=== PATIENT | female | born 1955 | race Caucasian/White ===

== ENCOUNTER → 2016-04-25 | Outpatient (CLI) | payer BC ==
[~2016-04-25] MED LIST: BUSP1TAB46 PO; CARV6.252 PO; CHOL100027 PO; INSU1.2I SC; LEVO125T5 PO; LISI-461 PO; LPT10 PO; MELA1TAB5 PO; NVLGI/PEN SC; TRAZ1TAB52 PO; VENL75CA73 PO; VERA240T20 PO; VNTHFA/IN INH; [UNRECOGNIZED DRUG - CODE] PO
[2016-04-25 17:57] LABS: CHOLESTEROL/HDL RATIO 2.1; THYROID STIMULATING HORMONE 0.948 uIu/ml (0.300-4.500)
[2016-04-26 06:57] LABS: ESTIMATED AVERAGE GLUCOSE 143 mg/dl; HA1C FLAG Normal (Normal)
== END | disposition home or self-care (01) ==
LOC: C.LAB1850 16:36
PROVIDERS: ATTEND Nurse Practitioner Adult Health
DX: E55.9 Vitamin D deficiency, unspecified (principal); Z11.59 Encounter for screening for other viral diseases

== ENCOUNTER → 2016-08-24 | Outpatient (CLI) | payer BC ==
[2016-08-24 15:41] LABS: BASO % 0.3 %; BASO ABS # 0.03 K/uL (0-0.2); COMPLETE YES; EOS % 3.5 %; IG% 0.3 %; LYMPH % 29.5 %; LYMPH ABS # 2.78 K/uL (1.2-3.4); MEAN CELL VOLUME 89.9 fL (80-100); MEAN CORPUSCULAR HEMOGLOBIN 28.5 pg (25-34); MEAN CORPUSCULAR HGB CONC 31.8 g/dl (32-36); MEAN PLATELET VOLUME 10.6 fL (7.4-10.4); MONO % 5.9 %; NEUT % 60.5 %; PLATELET COUNT 211 K/uL (130-400); RED BLOOD COUNT 4.45 M/uL (4.2-5.4); WHITE BLOOD COUNT 9.43 K/uL (4.8-10.8)
--- NOTE | 2016-08-24 15:42 | DIAGNOSTIC IMAGING REPORT ---
CHEST 2 VIEWS ROUTINE CLINICAL HISTORY: R06.02 Shortness of breath on [id number] dyspnea COMPARISON STUDY: 08/26/2015 FINDINGS: The bones soft tissues and hemidiaphragms are normal. The cardiomediastinal silhouette is normal. The lungs are clear. The pulmonary vasculature is normal. IMPRESSION: Negative chest. Electronically signed by: William Solo M.D. 08/24/2016 3:41 PM Dictated Date/Time: 08/24/2016 3:40 PM
[2016-08-24 16:18] LABS: ALT/SGPT 28 U/L (12-78); AST/SGOT 19 U/L (15-37); BLOOD UREA NITROGEN 11 mg/dl (7-18); BUN/CREATININE RATIO 19.5 (10-20); CARBON DIOXIDE 30 mmol/L (21-32); CHLORIDE 105 mmol/L (98-107); CREATININE 0.58 mg/dl (0.60-1.20); GLUCOSE 91 mg/dl (70-99); POTASSIUM 4.2 mmol/L (3.5-5.1); SODIUM 140 mmol/L (136-145)
[2016-08-24 16:28] LABS: ALB/GLOB RATIO 1.1 (0.9-2); ALKALINE PHOSPHATASE 103 U/L (45-117)
[2016-08-25 07:32] LABS: ESTIMATED AVERAGE GLUCOSE 163 mg/dl; HA1C FLAG Normal (Normal)
== END | disposition home or self-care (01) ==
LOC: C.RAD1850 14:52
PROVIDERS: ATTEND Physician Assistant
DX: R06.02 Shortness of breath (principal); E03.9 Hypothyroidism, unspecified

== ENCOUNTER → 2016-09-18 | Outpatient (CLI) | payer BC ==
--- NOTE | 2016-09-19 16:30 | MAMMOGRAPHY REPORT ---
BILATERAL DIGITAL SCREENING MAMMOGRAM TOMOSYNTHESIS WITH CAD: 09/18/2016 CLINICAL HISTORY: Routine screening. Patient has no complaints. Patient failed to follow-up for a short interval diagnostic mammogram and ultrasound after a diagnostic workup dated 09/16/2015. TECHNIQUE: Breast tomosynthesis in addition to standard 2D mammography was performed. Current study was also evaluated with a Computer Aided Detection (CAD) system. COMPARISON: Comparison is made to exams dated: 09/16/2015 ultrasound, 09/16/2015 mammogram, and 016 mammogram - [facility]. BREAST COMPOSITION: There are scattered areas of fibroglandular density in both breasts. FINDINGS: The previously described oval circumscribed mass with associated calcification in the lowe r inner middle one third of the right breast has not significantly changed in size since the mammogr am 1 year ago dated 08/26/2015. The associated calcifications appear more coarsened, suggesting estee ignity. This could represent a degenerating fibroadenoma. At this point with 1 year stability, it seems reasonable to reassess in 1 year for next annual screening exam, although long-term stability with more remote mammograms is not demonstrated. There are diffuse bilateral rodlike secretory calcifications and benign rim calcifications. Minimal vascular calcification. No other suspicious mass, architectural distortion or cluster of suspiciou s microcalcifications is seen. IMPRESSION: ACR BI-RADS CATEGORY 1: NEGATIVE The patient failed a follow-up for a recommended short interval follow-up diagnostic mammogram after the 09/16/2015 exam. However, the mammographic finding described in the right breast at that time has not significantly changed in size and associated calcifications have coarsened, suggesting benig nity. At this point with 1 year of stability, another 12 month follow-up exam seems reasonable and can reassess at time of next annual screening mammogram. Stable mammographic appearance of the left breast, without mammographic evidence of malignancy. Recommend routine mammography in one year. The patient will receive written notification of the results. Approximately 10% of breast cancers are not detected with mammography. A negative mammographic repor t should not delay biopsy if a clinically suggestive mass is present. Eboni Dang M.D. ay/:09/19/2016 16:09:54 Database Administration Project Manager: Meghan GARCIA(Bridget)(Kaylynn), [facility] letter sent: Normal 1/2 BI-RADS Code: ACR BI-RADS Category 1: Negative
== END | disposition home or self-care (01) ==
LOC: C.MAMM 16:06
PROVIDERS: ATTEND Nurse Practitioner Adult Health
DX: Z12.31 Encounter for screening mammogram for malignant neoplasm of breast (principal); R92.1 Mammographic calcification found on diagnostic imaging of breast

== ENCOUNTER → 2017-06-24 | Outpatient (CLI) | payer OTHER ==
--- NOTE | 2017-06-24 16:50 | DIAGNOSTIC IMAGING REPORT ---
CHEST 2 VIEWS ROUTINE CLINICAL HISTORY: R05 [id number] dyspnea COMPARISON STUDY: 08/24/2016 FINDINGS: The bones soft tissues and hemidiaphragms are normal. The cardiomediastinal silhouette is normal. The lungs are clear. The pulmonary vasculature is normal. IMPRESSION: Negative chest. The above report was generated using voice recognition software. It may contain grammatical, syntax or spelling errors. Electronically signed by: William Solo M.D. 06/24/2017 4:49 PM Dictated Date/Time: 06/24/2017 4:48 PM
== END | disposition home or self-care (01) ==
LOC: C.RAD1850 16:34
PROVIDERS: ATTEND Nurse Practitioner Family
DX: R05 Cough (principal)

== ENCOUNTER → 2017-06-24 | Outpatient (CLI) | payer OTHER | END | disposition home or self-care (01) | LOC: C.LABSPEC 10:55 | PROVIDERS: ATTEND Nurse Practitioner Family | DX: R39.9 Unspecified symptoms and signs involving the genitourinary system (principal) ==

== ENCOUNTER → 2017-07-15 | Outpatient (CLI) | payer OTHER ==
--- NOTE | 2017-07-15 14:14 | DIAGNOSTIC IMAGING REPORT ---
SINUS CT WITHOUT CONTRAST CLINICAL HISTORY: Headache. Seasonal allergies. COMPARISON STUDY: None. Technique: Helical axial images of the sinuses were obtained without IV contrast. Coronal reformats were viewed. A dose lowering technique was utilized adhering to the principles of ALARA. CT DOSE: 265.18 mGycm FINDINGS: Mastoid air cells are clear. Orbits are unremarkable. The maxillary and frontal sinuses are clear. There is minimal mucosal thickening of the ethmoid and sphenoid sinuses. Major drainage pathways are patent. There is no bony destruction. There are no air-fluid levels. There is mild right deviation of the nasal septum with spur formation. IMPRESSION: 1. Essentially clear sinuses. Minimal mucosal thickening of the sphenoid and ethmoid sinuses. No evidence for acute sinusitis. Patent major drainage pathways. 2. Mild rightward deviation of the nasal septum with spur formation. Electronically signed by: Berny Luevano M.D. 07/15/2017 2:12 PM Dictated Date/Time: 07/15/2017 2:09 PM
== END | disposition home or self-care (01) ==
LOC: C.CTS 13:56
PROVIDERS: ATTEND Nurse Practitioner Adult Health
DX: J30.2 Other seasonal allergic rhinitis (principal); G44.209 Tension-type headache, unspecified, not intractable

== ENCOUNTER → 2017-08-06 | Outpatient (CLI) | payer OTHER ==
[2017-08-06 17:36] LABS: BASO % 0.3 %; BASO ABS # 0.03 K/uL (0-0.2); EOS ABS # 0.46 K/uL (0-0.5); HEMATOCRIT 39.2 % (37-47); HEMOGLOBIN 12.7 g/dL (12.0-16.0); IG# 0.04 K/uL (0.00-0.02); LYMPH % 19.9 %; LYMPH ABS # 2.27 K/uL (1.2-3.4); MEAN CELL VOLUME 89.5 fL (80-100); MEAN CORPUSCULAR HGB CONC 32.4 g/dl (32-36); MEAN PLATELET VOLUME 11.1 fL (7.4-10.4); MONO % 5.4 %; MONO ABS # 0.62 K/uL (0.11-0.59); NEUT ABS # 7.96 K/uL (1.4-6.5); PLATELET COUNT 224 K/uL (130-400); RED CELL DISTRIBUTION WIDTH CV 15.1 % (11.5-14.5); RED CELL DISTRIBUTION WIDTH SD 49.4 fL (36.4-46.3); WHITE BLOOD COUNT 11.38 K/uL (4.8-10.8)
== END | disposition home or self-care (01) ==
LOC: C.LAB1850 16:05
PROVIDERS: ATTEND Internal Medicine Pulmonary Disease
DX: R21 Rash and other nonspecific skin eruption (principal)

== ENCOUNTER → 2017-08-15 | Outpatient (CLI) | payer OTHER ==
[2017-08-15 17:54] LABS: ALBUMIN 3.5 gm/dl (3.4-5.0); ALT/SGPT 24 U/L (12-78); AST/SGOT 21 U/L (15-37); BLOOD UREA NITROGEN 8 mg/dl (7-18); CALCIUM 8.9 mg/dl (8.5-10.1); CARBON DIOXIDE 29 mmol/L (21-32); CHOLESTEROL 107 mg/dl (0-200); CREATININE 0.81 mg/dl (0.60-1.20); GLUCOSE 91 mg/dl (70-99); POTASSIUM 3.7 mmol/L (3.5-5.1); SODIUM 141 mmol/L (136-145)
[2017-08-15 17:56] LABS: CREATININE RANDOM URINE 26.5 mg/dl
[2017-08-15 18:02] LABS: ALKALINE PHOSPHATASE 83 U/L (45-117); LDL CHOLESTEROL CALCULATED 33 mg/dl; TOTAL PROTEIN 7.3 gm/dl (6.4-8.2)
[2017-08-16 07:02] LABS: HEMOGLOBIN A1C 6.4 % (4.5-5.6)
== END | disposition home or self-care (01) ==
LOC: C.LAB1850 16:29
PROVIDERS: ATTEND Physician Assistant
DX: E11.9 Type 2 diabetes mellitus without complications (principal)

== ENCOUNTER → 2017-08-16 | Outpatient (CLI) | payer OTHER ==
--- NOTE | 2017-08-16 13:12 | DIAGNOSTIC IMAGING REPORT ---
(CHEST) THORAX WITHOUT CT DOSE: 578.11 mGy.cm CLINICAL HISTORY: 62 years-old Female with R05 Cough. Acute cough TECHNIQUE: Multiaxial CT images of the chest were performed without contrast. A dose lowering technique was utilized adhering to the principles of ALARA. COMPARISON: Chest radiograph 06/24/2017, chest radiograph 08/26/2015 FINDINGS: No dominant thyroid nodule identified. No pathologically enlarged lymph nodes by CT size criteria. Mildly prominent mediastinal and hilar lymph nodes are seen measuring up to 9 mm within the right hilum, likely reactive. Heart is normal in size without pericardial effusion. Coronary arterial calcifications. No aortic aneurysm identified. No pleural effusion, lobar airspace consolidation or pneumothorax. 4 mm pleural-based nodule of the apical segment right upper lobe on image 55 series 4 suggests area of parenchymal scarring. Linear subsegmental bibasilar opacities suggest scarring/atelectasis. Additionally, there is mild dependent subsegmental atelectasis. Punctate calcified granuloma of the lateral basal segment left lower lobe on image 234. Central airways are patent. Prior cholecystectomy. 11 mm low attenuating circumscribed lesion of the subserosal left hepatic lobe on image 49 series 2 suggests hepatic cyst. No acute process of the imaged upper abdomen. Soft tissues are unremarkable. Biopsy clip of the medial left breast. Calcifications of the bilateral breast parenchyma are incidentally noted. Degenerative changes are seen within the shoulders and spine with suggested rotator cuff calcific tendinosis about the left shoulder. Technically age-indeterminate however chronic appearing compression deformity involves the T12 vertebral body, unchanged from comparison chest radiograph. IMPRESSION: 1. No acute intrathoracic abnormality identified. 2. No lobar airspace consolidation or pathologic adenopathy. 3. Prior cholecystectomy. 4. Remote compression deformity of the T12 vertebral body. 5. Coronary arterial disease. Electronically signed by: Grant Stewart M.D. 08/16/2017 1:11 PM Dictated Date/Time: 08/16/2017 1:04 PM
== END | disposition home or self-care (01) ==
LOC: C.CTS 12:32
PROVIDERS: ATTEND Internal Medicine Pulmonary Disease
DX: R05 Cough (principal); M43.8X4 Other specified deforming dorsopathies, thoracic region; I25.10 Atherosclerotic heart disease of native coronary artery without angina pectoris; Z90.49 Acquired absence of other specified parts of digestive tract

== ENCOUNTER → 2017-09-09 | Outpatient (CLI) | payer OTHER ==
[2017-09-09 17:05] LABS: ALBUMIN 3.4 gm/dl (3.4-5.0); ALKALINE PHOSPHATASE 80 U/L (45-117); ALT/SGPT 20 U/L (12-78); AST/SGOT 18 U/L (15-37); BLOOD UREA NITROGEN 10 mg/dl (7-18); CALCIUM 8.9 mg/dl (8.5-10.1); CARBON DIOXIDE 29 mmol/L (21-32); GLUCOSE 124 mg/dl (70-99); POTASSIUM 3.7 mmol/L (3.5-5.1); SODIUM 140 mmol/L (136-145); TOTAL PROTEIN 6.9 gm/dl (6.4-8.2)
== END | disposition home or self-care (01) ==
LOC: C.LAB1850 15:45
PROVIDERS: ATTEND Internal Medicine Pulmonary Disease
DX: R06.02 Shortness of breath (principal); R05 Cough

== ENCOUNTER 2017-11-17 14:19 | Emergency (ER) | payer OTHER ==
[~2017-11-17] VITALS: Ht 170.2 cm; Wt 95.1 kg
[~2017-11-17 14:19] MED LIST changes: +ABL/5 PO; +EFF/375 PO; +INSPMPRGR SC; -LEVO125T5 PO; +LEVO137T3 PO; -LISI-461 PO; +LOSA50TA6 PO; +METH500T37 PO; +NAPR1TAB9 PO; -NVLGI/PEN SC
[2017-11-17 14:23] VITALS: TEMP 36.8; Ht 170.2 cm; Wt 95.1 kg
[2017-11-17 14:54] LABS: BASO % 0.4 %; BASO ABS # 0.04 K/uL (0-0.2); EOS % 3.3 %; EOS ABS # 0.35 K/uL (0-0.5); HEMATOCRIT 41.1 % (37-47); HEMOGLOBIN 13.1 g/dL (12.0-16.0); IG# 0.03 K/uL (0.00-0.02); LYMPH % 23.2 %; LYMPH ABS # 2.43 K/uL (1.2-3.4); MEAN CELL VOLUME 88.4 fL (80-100); MEAN CORPUSCULAR HEMOGLOBIN 28.2 pg (25-34); MEAN CORPUSCULAR HGB CONC 31.9 g/dl (32-36); MEAN PLATELET VOLUME 10.6 fL (7.4-10.4); MONO % 5.4 %; MONO ABS # 0.57 K/uL (0.11-0.59); NEUT % 67.4 %; NEUT ABS # 7.06 K/uL (1.4-6.5); PLATELET COUNT 199 K/uL (130-400); RED CELL DISTRIBUTION WIDTH CV 14.5 % (11.5-14.5); RED CELL DISTRIBUTION WIDTH SD 47.2 fL (36.4-46.3); WHITE BLOOD COUNT 10.48 K/uL (4.8-10.8)
[2017-11-17 15:14] LABS: ALBUMIN 3.7 gm/dl (3.4-5.0); CALCIUM 8.9 mg/dl (8.5-10.1); CREATININE 0.65 mg/dl (0.60-1.20); POTASSIUM 4.1 mmol/L (3.5-5.1); TOTAL PROTEIN 7.2 gm/dl (6.4-8.2)
[2017-11-17] MEDS ORDERED: LEVO150T9 PO (15:16)
[2017-11-17] MEDS ORDERED: CETI10TA10 PO (15:16)
[2017-11-17] MEDS ORDERED: DEXT1TAB PO (15:16)
[2017-11-17] MEDS ORDERED: CEPH500C PO (15:35)
[2017-11-17] MEDS ORDERED: CEPHALEXIN 500MG HOME PACK 1 EA BTL PO ONE (15:45)
[2017-11-17] MEDS ORDERED: CEPHALEXIN MONOHYDRATE 250 MG CAP PO ONE (15:45)
--- NOTE | 2017-11-17 15:53 | EMERGENCY ROOM VISIT NOTE ---
History Report prepared by Martha: Gisselle Snow Under the Supervision of: Dr. Brock Mesa M.D. First contact with patient: 14:25 Chief Complaint: URINARY SYMPTOMS Stated Complaint: PAIN WHEN URINATING History of Present Illness The patient is a 62 year old female who presents to the Emergency Room with complaints of persistent urinary symptoms starting 3 days ago. She woke up morning with some blood in her urine, burning with urination, and incontinence. She called her doctor and was told to come to the ED. Since then she has had one more episode of hematuria. The incontinence has improved. She has continued to have burning with urination. She is having lower abdominal discomfort. She has had some bilateral back discomfort which worsens with movement. She has had these symptoms before with her UTIs. She has several UTIs a year. Her last UTI was several months ago. She has had some new leg swelling. She has not had any fevers or chest pain. She denies any changes in her bowel movements. She has been eating and drinking well. She denies any recent falls. She is not on any blood thinners. She takes Naprosyn 2 times a day for joint pain. She has had some cough and SOB for which she has been following with pulmonology. She had a bronchoscopy earlier this month. Her SOB has not worsened. She was on Augmentin 2 weeks ago for her cough. She has a history of insulin dependent diabetes. Her sugars have been under control. Source of History: patient Onset: 3 days ago Position: other (urine) Quality: burning Timing: other (persistent) Associated Symptoms: + abdominal pain, + back pain, No fevers, No chest pain Review of Systems See HPI for pertinent positives and negatives. A total of ten systems were reviewed and were otherwise negative. Past Medical & Surgical Medical Problems: (1) Arthritis (2) Crohn's disease (3) Diabetes (4) Hypertension (5) Hypothyroidism Family History No pertinent family history stated Social History Smoking Status: Never Smoker Marital Status: Housing Status: lives with significant other Occupation Status: retired Current/Historical Medications Scheduled Aripiprazole (Abilify), 1 TAB PO HS Atorvastatin (Lipitor), 1 TAB PO HS Buspirone Hcl (Buspirone Hcl), 1 TAB PO BID Carvedilol (Coreg), 6.25 MG PO BIDM Cephalexin Monohydrate (Keflex), 500 MG PO QID Cetirizine Hcl (Zyrtec), 10 MG PO DAILY Cholecalciferol (Vitamin D 1000 Unit), 1,000 INTER.UNIT PO BID Dextromethorphan-Guaifenesin (Guaifenesin/Dextromethorp 20-400 mg), 1 TAB PO HS Insulin Glargine (Toujeo Solostar), 55 UNITS SC HS Insulin Human Regular (Humulin R), 20 UNITS SC TIDM Levothyroxine Sodium (Levothyroxine Sodium), 287 MCG PO DAILY Levothyroxine Sodium (Levothyroxine Sodium), 287 MCG PO DAILY Losartan Potassium (Cozaar), 1 TAB PO DAILY Melatonin (Kp Melatonin), 6 MG PO HS Naproxen (Aleve), 220 MG PO AMHS Polysaccharide Iron Complex-Ir (Feosol Bifera), 1 TAB PO QAM Trazodone Hcl (Desyrel), 150 MG PO HS Venlafaxine Hcl (Venlafaxine Extended Rel), 112.5 MG PO QAM Venlafaxine Hcl (Effexor), 112.5 MG PO DAILY Verapamil Sust Rel (Calan Sr Ext Rel), 240 MG PO QAM Scheduled PRN Albuterol Hfa (Ventolin Hfa), 2-4 PUFFS INH Q6H PRN for SOB/Wheezing Methocarbamol (Robaxin), 500 MG PO TID PRN for Muscle Spasms Allergies Coded Allergies: Sulfa Antibiotics (Verified Allergy, Severe, SUNBURN FEELING AND SKIN TURNS BRIGHT RED, 11/17/17) CI Pigment Blue 63 (Verified Allergy, Intermediate, RASH, 11/17/17) Duloxetine (Verified Allergy, Intermediate, RASH, 11/17/17) Physical Exam Vital Signs Date Time Temp Pulse Resp B/P (MAP) Pulse Ox O2 Delivery O2 Flow Rate FiO2 11/17/17 15:57 89 16 138/76 98 11/17/17 14:23 36.8 71 20 149/78 94 Room Air Physical Exam GENERAL: Awake, alert, well-appearing, in no distress HENT: Normocephalic, atraumatic. Oropharynx unremarkable. EYES: Normal conjunctiva. Sclera non-icteric. NECK: Supple. No nuchal rigidity. RESPIRATORY: Clear to auscultation. No wheezes. Normal respiratory effort. CARDIAC: Normal rate. Normal rhythm. Extremities warm and well perfused. GI: Soft, non-distended. No tenderness to palpation. No rebound or guarding. No masses. RECTAL: Deferred. MUSCULOSKELETAL: Atraumatic. Chest examination reveals no tenderness. There is mild bilateral back tenderness without CVA tenderness. LOWER EXTREMITIES: Calves are equal size bilaterally and non-tender. No edema NEURO: Normal sensorium. No sensory or motor deficits noted. SKIN: Warm and dry. No rash or jaundice noted. Medical Decision & Procedures Laboratory Results 11/17/17 14:40 Red Blood Count 4.65, Mean Corpuscular Volume 88.4, Mean Corpuscular Hemoglobin 28.2, Mean Corpuscular Hemoglobin Concent 31.9, Mean Platelet Volume 10.6, Neutrophils (%) (Auto) 67.4, Lymphocytes (%) (Auto) 23.2, Monocytes (%) (Auto) 5.4, Eosinophils (%) (Auto) 3.3, Basophils (%) (Auto) 0.4, Neutrophils # (Auto) 7.06, Lymphocytes # (Auto) 2.43, Monocytes # (Auto) 0.57, Eosinophils # (Auto) 0.35, Basophils # (Auto) 0.04 11/17/17 14:40 Test 11/17/17 14:40 11/17/17 14:55 White Blood Count 10.48 K/uL (4.8-10.8) Red Blood Count 4.65 M/uL (4.2-5.4) Hemoglobin 13.1 g/dL (12.0-16.0) Hematocrit 41.1 % (37-47) Mean Corpuscular Volume 88.4 fL (80-100) Mean Corpuscular Hemoglobin 28.2 pg (25-34) Mean Corpuscular Hemoglobin Concent 31.9 g/dl (32-36) Platelet Count 199 K/uL (130-400) Mean Platelet Volume 10.6 fL (7.4-10.4) Neutrophils (%) (Auto) 67.4 % Lymphocytes (%) (Auto) 23.2 % Monocytes (%) (Auto) 5.4 % Eosinophils (%) (Auto) 3.3 % Basophils (%) (Auto) 0.4 % Neutrophils # (Auto) 7.06 K/uL (1.4-6.5) Lymphocytes # (Auto) 2.43 K/uL (1.2-3.4) Monocytes # (Auto) 0.57 K/uL (0.11-0.59) Eosinophils # (Auto) 0.35 K/uL (0-0.5) Basophils # (Auto) 0.04 K/uL (0-0.2) RDW Standard Deviation 47.2 fL (36.4-46.3) RDW Coefficient of Variation 14.5 % (11.5-14.5) Immature Granulocyte % (Auto) 0.3 % Immature Granulocyte # (Auto) 0.03 K/uL (0.00-0.02) Anion Gap 8.0 mmol/L (3-11) Est Creatinine Clear Calc Drug Dose 104.9 ml/min Estimated GFR () 109.5 Estimated GFR (Non- 94.5 BUN/Creatinine Ratio 12.9 (10-20) Calcium Level 8.9 mg/dl (8.5-10.1) Total Bilirubin 0.3 mg/dl (0.2-1) Direct Bilirubin 0.1 mg/dl (0-0.2) Aspartate Amino Transf (AST/SGOT) 24 U/L (15-37) Alanine Aminotransferase (ALT/SGPT) 25 U/L (12-78) Alkaline Phosphatase 95 U/L (45-117) Total Protein 7.2 gm/dl (6.4-8.2) Albumin 3.7 gm/dl (3.4-5.0) Lipase 73 U/L (73-393) Urine Color YELLOW Urine Appearance CLOUDY (CLEAR) Urine pH 6.5 (4.5-7.5) Urine Specific [place] 1.005 (1.000-1.030) Urine Protein NEG (NEG) Urine Glucose (UA) NEG (NEG) Urine Ketones NEG (NEG) Urine Occult Blood 1+ (NEG) Urine Nitrite NEG (NEG) Urine Bilirubin NEG (NEG) Urine Urobilinogen NEG (NEG) Urine Leukocyte Esterase LARGE (NEG) Urine WBC (Auto) >30 /hpf (0-5) Urine RBC (Auto) 0-4 /hpf (0-4) Urine Hyaline Casts (Auto) 0 /lpf (0-5) Urine Epithelial Cells (Auto) 0-5 /lpf (0-5) Urine Bacteria (Auto) NEG (NEG) Laboratory results reviewed by me Medications Administered Medications (Trade) Dose Ordered Sig/Cristobal Route Start Time Stop Time Status Last Admin Dose Admin Cephalexin Monohydrate (Keflex Cap) 500 mg NOW ONCE PO 11/17/17 15:45 11/17/17 15:46 DC 11/17/17 15:45 500 MG Cephalexin Monohydrate (Keflex 500MG Home Pack) 1 homepack NOW ONCE PO 11/17/17 15:45 11/17/17 15:46 DC 11/17/17 15:50 1 HOMEPACK ED Course 1427: The patient was evaluated in room B12B. A complete history and physical exam was performed. 1531: I reevaluated the patient. Discussed results and discharge instructions: She verbalized understanding and agreement. The patient is ready for discharge. 1545: Keflex 500 mg 1 homepack PO, Keflex Cap 500 mg PO. Medical Decision Differential diagnosis: Etiologies such as renal colic, appendicitis, diverticulitis, mesenteric ischemia, aortic pathology, infections, inflammatory bowel disease, PUD, biliary pathology, UTI, as well as others were entertained. Patient presents with several days of pain on urination with 2 episodes of hematuria. Some mild bilateral back pain worse with movement seems more consistent musculoskeletal. Do not believe this represents nephrolithiasis. No fevers and no other abdominal pain. No pain on exam of abdomen. Mild diffuse back pain likely MSK in nature. Some slight urinary discomfort at times. History of recurrent UTI with E. coli. Microbiology indicates ampicillin and Unasyn resistance in the past. Recently on Augmentin 2 weeks ago for her cough. Patient otherwise well-appearing. Stable chronic cough. Basic labs and urine and urine culture sent. No leukocytosis. UA positive. Based on prior cultures will treat for UTI with Keflex. Recommend outpatient follow-up. Medication Reconcilliation Current Medication List: was personally reviewed by me Blood Pressure Screening Patient's blood pressure: Elevated blood pressure Blood pressure disposition: Referred to PCP Impression Primary Impression: Urinary tract infection Scribe Attestation The scribe's documentation has been prepared under my direction and personally reviewed by me in its entirety. I confirm that the note above accurately reflects all work, treatment, procedures, and medical decision making performed by me. Departure Information Dispostion Home / Self-Care Prescriptions Cephalexin Monohydrate (Keflex) 500 Mg Cap 500 MG PO QID for 5 Days, #20 CAP Prov: Brock Mesa M.D. 11/17/17 Referrals Kamran Kahn D.O. (PCP) Forms HOME CARE DOCUMENTATION FORM, IMPORTANT VISIT INFORMATION Patient Instructions My [facility], UTI Additional Instructions Please maintain hydration. Utilize the antibiotics to help with your urinary tract infection. A urine culture is pending and if the antibiotic given to you is found to not be treating the infection appropriately you may receive a phone call otherwise please complete your antibiotic course as directed. If you have any new or worrisome symptoms please return for reevaluation. If not improving over the next 1-2 days would recommend outpatient follow-up with your regular doctor. Problem Qualifiers Primary Impression: Urinary tract infection Urinary tract infection type: acute cystitis Hematuria presence: with hematuria Qualified Codes: N30.01 - Acute cystitis with hematuria
[2017-11-17 15:57] VITALS: BP 138/76; PULSE 89; O2SAT 98
--- NOTE | 2017-11-19 16:21 | Pharmacy Progress Note ---
ED Pharmacist Culture FollowUp Date of Service: Nov 19, 2017. Urine cx is growing citrobacter freundii >100,000 CFU/mL. She had been dx w/ UTI and discharged w/ Rx for Keflex 500mg PO QID x 5 days. This organism is likely resistant to Keflex based upon sensitivities. Reviewed case w/ Dr Tillman. Plan is to have patient stop Keflex and begin Cipro 500mg PO BID x 10 days. Citrobacter has inducible resistance that is not apparent on sensitivities therefore a [id number] is preferred tx. I attempted to contact the patient w/ ph # provided ([phone]) however there was no answer. I did leave a message requesting a call back.
== END 2017-11-17 15:58 | disposition home or self-care (01) ==
LOC: C.EDB 14:21
DX: N39.0 Urinary tract infection, site not specified (principal); E11.9 Type 2 diabetes mellitus without complications; M19.90 Unspecified osteoarthritis, unspecified site; K50.90 Crohn's disease, unspecified, without complications; I10 Essential (primary) hypertension; E03.9 Hypothyroidism, unspecified; Z79.4 Long term (current) use of insulin; Z79.899 Other long term (current) drug therapy; Z88.2 Allergy status to sulfonamides; Z88.8 Allergy status to other drugs, medicaments and biological substances